=== PATIENT | male | born 1975 | race Caucasian/White ===

== ENCOUNTER 2017-12-24 16:19 | Emergency (ER) | payer OTHER ==
[2017-12-24 16:28] VITALS: RESP 18
[2017-12-24] MEDS ORDERED: SODIUM CHLORIDE 0.9% 1,000 ML IV STA (16:44)
[2017-12-24] MEDS ORDERED: KETOROLAC 30 MG/ML 1 ML VIAL IVP STA (16:44)
[2017-12-24] MEDS ORDERED: TRIMETHOBENZAMIDE 100 MG/ML 2 ML VIAL IM STA (16:45)
--- NOTE | 2017-12-24 16:48 | ED ---
Abdominal Pain HPI - General Chief Complaint: Abdominal Pain Stated Complaint: Flank pain Time Seen by Provider: 12/24/17 16:30 Source: patient Mode of arrival: ambulatory Limitations: no limitations - History of Present Illness Initial Comments: Patient is a 42-year-old male with a past medical history of renal calculi that presents to emergency department for left-sided flank pain which she believes is another kidney stone. He states on Tuesday, he started having a constant cramping sensation which eventually dissipated. However, last night he then started having some trouble urinating as well as dysuria and hematuria. He admits to nausea but no fevers or chills as well as vomiting or diarrhea. Is currently at [place] for alcohol rehabilitation and states that he was told to come here for further evaluation. - Related Data Previous Rx's Medication Instructions Recorded HYDROcodone/APAP 5-325MG [[place] 1 tab PO Q6HR PRN #12 tab 12/24/17 5-325] Ibuprofen [Motrin] 600 mg PO Q6HR PRN #20 tab 12/24/17 Allergies Allergy/AdvReac Type Severity Reaction Status Date / Time bee venom protein (honey bee) Allergy Swelling Verified 12/24/17 16:23 Review of Systems ROS Statement: Those systems with pertinent positive or pertinent negative responses have been documented in the HPI. Constitutional: Negative for chills, fatigue and fever. HENT: Negative for congestion. Respiratory: Negative for chest tightness, shortness of breath and wheezing. Negative for cough Cardiovascular: Negative for chest pain and palpitations. Gastrointestinal: Positive for abdominal pain and nausea. Negative for abdominal distention, diarrhea, and vomiting. Genitourinary: Positive for dysuria, hematuria, urinary hesitancy. Negative for testicular pain Musculoskeletal: Negative for back pain, neck pain and neck stiffness. Skin: Negative for color change. Neurological: Negative for dizziness, speech difficulty, weakness and light- headedness. Psychiatric/Behavioral: Negative for agitation and confusion. Negative for anxiety ROS Other: All systems not noted in ROS Statement are negative. Past Medical History Past Medical History: No Reported History History of Any Multi-Drug Resistant Organisms: None Reported Past Surgical History: Orthopedic Surgery Additional Past Surgical History / Comment(s): L ankle Past Psychological History: No Psychological Hx Reported Smoking Status: Current every day smoker Past Alcohol Use History: Abuse, Daily, Heavy Past Drug Use History: Cocaine, Heroin General Exam - General Exam Comments Initial Comments: Constitutional: Pt is oriented to person, place, and time. Pt appears well- developed and well-nourished. No distress. HENT: Head: Normocephalic and atraumatic. Eyes: EOM are normal. Neck: Normal range of motion. Neck supple. Cardiovascular: Normal rate, regular rhythm, S1 normal, S2 normal and normal heart sounds. Exam reveals no gallop and no friction rub. No murmur heard. Pulmonary/Chest: Effort normal and breath sounds normal. No tachypnea and no bradypnea. No respiratory distress. No wheezes or rales noted. Abdominal: Soft. Bowel sounds are normal. Pt exhibits no shifting dullness, no distension, no pulsatile liver, no fluid wave, no abdominal bruit and no ascites. There is no tenderness. There is no rigidity, no rebound, no guarding, no tenderness at McBurney's point and negative Castro's sign. Musculoskeletal: Normal range of motion. Neurological: Pt is alert and oriented to person, place, and time. No cranial nerve deficit. Skin: Skin is warm and dry. No rash noted. Pt is not diaphoretic. No erythema. No pallor. Psychiatric: Pt has a normal mood and affect. Pt behavior is normal. Thought content normal. Limitations: no limitations Course Vital Signs 12/24/17 16:23 Temperature 98.5 F Pulse Rate 91 Respiratory 18 Rate Blood Pressure 143/101 O2 Sat by Pulse 99 Oximetry Medical Decision Making - Medical Decision Making Auditory studies showed that there is no evidence of leukocytosis, urinary tract infection and renal function was preserved. CT of the abdomen was performed and showed tiny bilateral renal calculi shocking calculus at the left UVJ. There is no evidence of hydronephrosis and there was a 5 mm stone measured. Because the patient's pain was well controlled and there was no renal dysfunction, it was believed that the patient could be safely discharged. Patient was advised follow-up with PCP in next 1-2 days and return to the emergency department if he developed fever, intractable pain, inability to urinate. Patient was agreeable to plan. - Lab Data Result diagrams: 12/24/17 16:45 12/24/17 17:15 Lab Results 10/27/18 10/27/18 10/27/18 Range/Units 16:45 16:55 17:15 WBC 6.2 (3.8-10.6) k/uL RBC 4.73 (4.30-5.90) m/uL Hgb 15.5 (13.0-17.5) gm/dL Hct 46.2 (39.0-53.0) % MCV 97.7 (80.0-100.0) fL MCH 32.8 (25.0-35.0) pg MCHC 33.6 (31.0-37.0) g/dL RDW 13.1 (11.5-15.5) % Plt Count 208 (150-450) k/uL Neutrophils % 62 % Lymphocytes % 24 % Monocytes % 10 % Eosinophils % 2 % Basophils % 0 % Neutrophils # 3.8 (1.3-7.7) k/uL Lymphocytes # 1.5 (1.0-4.8) k/uL Monocytes # 0.6 (0-1.0) k/uL Eosinophils # 0.1 (0-0.7) k/uL Basophils # 0.0 (0-0.2) k/uL Sodium 141 (137-145) mmol/L Potassium 4.0 (3.5-5.1) mmol/L Chloride 109 H (98-107) mmol/L Carbon Dioxide 23 (22-30) mmol/L Anion Gap 9 mmol/L BUN 15 (9-20) mg/dL Creatinine 0.82 (0.66-1.25) mg/dL Est GFR (CKD-EPI)AfAm >90 (>60 ml/min/1.73 sqM) Est GFR (CKD-EPI)NonAf >90 (>60 ml/min/1.73 sqM) Glucose 95 (74-99) mg/dL Calcium 10.1 (8.4-10.2) mg/dL Total Bilirubin 0.6 (0.2-1.3) mg/dL AST 43 (17-59) U/L ALT 75 H (21-72) U/L Alkaline Phosphatase 46 (38-126) U/L Total Protein 6.8 (6.3-8.2) g/dL Albumin 4.1 (3.5-5.0) g/dL Urine Color Light Yellow Urine Appearance Cloudy (Clear) Urine pH 6.5 (5.0-8.0) Ur Specific [place] 1.010 (1.001-1.035) Urine Protein Negative (Negative) Urine Glucose (UA) Negative (Negative) Urine Ketones Negative (Negative) Urine Blood Negative (Negative) Urine Nitrite Negative (Negative) Urine Bilirubin Negative (Negative) Urine Urobilinogen <2.0 (<2.0) mg/dL Ur Leukocyte Esterase Negative (Negative) Urine WBC 2 (0-5) /hpf Amorphous Sediment Rare H (None) /hpf Urine Mucus Occasional H (None) /hpf Disposition Clinical Impression: Calculus of kidney Disposition: HOME SELF-CARE Condition: Good Prescriptions: HYDROcodone/APAP 5-325MG [[place] 5-325] 1 tab PO Q6HR PRN #12 tab PRN Reason: Pain Ibuprofen [Motrin] 600 mg PO Q6HR PRN #20 tab PRN Reason: Pain Is patient prescribed a controlled substance at d/c from ED?: Yes Referrals: Nonstaff,Physician [Primary Care Provider] - 1-2 days Time of Disposition: 18:16
[2017-12-24 17:07] LABS: Amorphous Sediment,Urine Rare /hpf; Appearance,Urine Cloudy (Clear); Bilirubin,Urine Negative (Negative); Blood,Urine Negative (Negative); Color,Urine Light Yellow; Glucose,Urine (UA) Negative (Negative); Ketones,Urine Negative (Negative); Leukocyte Esterase,Urine Negative (Negative); Mucus,Urine Occasional /hpf; Nitrite,Urine Negative (Negative); PH, Urine 6.5 (5.0-8.0); Protein,Urine Negative (Negative); Urobilinogen,Urine <2.0 mg/dL (<2.0); WBC,Urine 2 /hpf (0-5)
[2017-12-24 17:26] LABS: Basophils % (A) 0 %; Eosinophils # (A) 0.1 k/uL (0-0.7); Eosinophils % (A) 2 %; HCT 46.2 % (39.0-53.0); HGB 15.5 gm/dL (13.0-17.5); Lymphocytes # (A) 1.5 k/uL (1.0-4.8); Lymphocytes % (A) 24 %; MCH 32.8 pg (25.0-35.0); MCHC 33.6 g/dL (31.0-37.0); MCV 97.7 fL (80.0-100.0); Mean Platelet Volume 8.4; Monocytes # (A) 0.6 k/uL (0-1.0); Monocytes % (A) 10 %; Neutrophils # (A) 3.8 k/uL (1.3-7.7); Neutrophils % (A) 62 %; Platelet Count 208 k/uL (150-450); RBC 4.73 m/uL (4.30-5.90); RDW 13.1 % (11.5-15.5); WBC 6.2 k/uL (3.8-10.6)
[2017-12-24 17:41] LABS: ALT 75 U/L (21-72); AST 43 U/L (17-59); Albumin 4.1 g/dL (3.5-5.0); Alkaline Phosphatase 46 U/L (38-126); Anion Gap 9 mmol/L; Blood Urea Nitrogen 15 mg/dL (9-20); Calcium 10.1 mg/dL (8.4-10.2); Carbon Dioxide 23 mmol/L (22-30); Chloride 109 mmol/L (98-107); Glucose 95 mg/dL (74-99); Sodium 141 mmol/L (137-145); Total Bilirubin 0.6 mg/dL (0.2-1.3); Total Protein 6.8 g/dL (6.3-8.2)
--- NOTE | 2017-12-24 17:44 | CT ---
EXAMINATION TYPE: CT abdomen pelvis wo con DATE OF EXAM: 12/24/2017 COMPARISON: None HISTORY: left flank pain X 3 days, pain is now lower and more anterior. hx of stones CT DLP: 558.3 mGycm Automated exposure control for dose reduction was used. TECHNIQUE: Helical acquisition of images was performed from the lung bases through the pelvis. FINDINGS: Lung bases are clear of infiltrate. There is no pleural effusion. Heart is top normal in size. There is small hiatal hernia. Remainder of the stomach appears normal. Liver appears normal. Gallbladder is contracted. Bile ducts are not dilated. Spleen appears normal. T here is no pancreatic mass. There is no adrenal mass. Kidneys have normal size. There is 2 mm calculu s lower pole left kidney. There are tiny calculi in the right kidney. There is slight fullness of the left renal pelvis. There is mild ectasia of the left ureter. There is a 5 mm calculus at the left ur eterovesical junction. Bladder otherwise distends smoothly. There is prostatic calcification. There i s no inguinal hernia. There is no ascites. There is no sign of free air. There is no retroperitoneal adenopathy. There is n o mesenteric adenopathy or edema. Appendix appears normal. There is no intestinal wall thickening. Th ere are no dilated loops. Lumbar spine is intact. The bony pelvis is intact. There is narrowing of L4 -5 disc space with vacuum disc. There is mild spurring at L4-5. There is posterior left-sided and martina tral L4-5 lumbar disc herniation. IMPRESSION: TINY BILATERAL RENAL CALCULI. OBSTRUCTING CALCULUS AT THE LEFT URETEROVESICAL JUNCTION.
[2017-12-24 18:34] VITALS: BP 134/92; PULSE 72; TEMP 98.1
== END 2017-12-24 18:32 | disposition home or self-care (01) ==
LOC: EC 16:19
DX: N20.0 Calculus of kidney (principal); F17.200 Nicotine dependence, unspecified, uncomplicated; Z91.030 Bee allergy status
CPT/HCPCS: 36415; 80053; 85025; 81001; 74176; 99284; 96374; 96361; 96372; J3250; J1885